=== PATIENT | female | born 1950 | race Caucasian/White ===

== ENCOUNTER 2018-11-30 07:07 | Day surgery (SDC) | payer MEDICARE ==
[~2018-11-30] VITALS: Ht 157.5 cm; Wt 158.8 kg
[~2018-11-30 07:07] MED LIST: ACETAMIN500 M2 PO; ALBUTEROL SUL0.083 % IN; FUROSEMIDE40 MG PO; GABAPENTIN400 M2 PO; JANTOVEN5 MG PO; LASIX40 MG OR; METOLAZONE5 MG PO; METOPROL TAR100 M1 PO; METOPROL TAR25 MG PO; POT CHLORIDE10 ME1 PO; POTASSIUM GLUC595 MG OR; RANITIDINE150 M1 OR; TAM75CAP PO
[2018-11-30 09:45] VITALS: BP 140/68
== END 2018-11-30 10:20 | disposition home or self-care (01) ==
LOC: ORM 07:07
PROVIDERS: ATTEND Anesthesiology Pain Medicine
DX: B02.29 Other postherpetic nervous system involvement (principal)
CPT/HCPCS: Q9967

== ENCOUNTER 2018-12-14 07:49 | Day surgery (SDC) | payer MEDICARE ==
[2018-12-14 10:53] VITALS: BP 130/68
== END 2018-12-14 11:20 | disposition home or self-care (01) ==
LOC: ORM 07:49
PROVIDERS: ATTEND Anesthesiology Pain Medicine
DX: B02.29 Other postherpetic nervous system involvement (principal)
CPT/HCPCS: Q9967